=== PATIENT | male | born 1950 | race American Indian/Alaskan Native ===

== ENCOUNTER 2016-12-21 16:52 | Emergency (ER) | payer MEDICARE, MEDICAID ==
--- NOTE | 2016-12-21 16:59 | EDM.PDOC ---
ED HPI GENERAL MEDICAL PROBLEM - General Chief Complaint: Skin Complaint Stated Complaint: BIG TOE PUS, DIABETIC, [id number] Time Seen by Provider: 12/21/16 16:59 Source of Information: Reports: Patient, Old Records, RN, RN Notes Reviewed History Limitations: Reports: No Limitations - History of Present Illness INITIAL COMMENTS - FREE TEXT/NARRATIVE: Complaint of new "raw spot" on right foot. Patient is diabetic and has had skin ulcers that got infected in the past and doesn't want to take any chances. Reports new shoe rubbed at the medial right big toe joint and made a blister that popped during the night. Severity: Mild Improves with: Reports: None Worsens with: Reports: None Associated Symptoms: Reports: No Other Symptoms Right Feet Pain Score (Numeric/FACES): 0 - Related Data Allergies Allergy/AdvReac Type Severity Reaction Status Date / Time No Known Allergies Allergy Verified 12/21/16 16:59 Home Meds: Home Meds Acetaminophen [Pain Relief] 650 mg PO Q4HR PRN 01/12/15 [History] Gabapentin [Neurontin] 300 mg PO BID 01/12/15 [History] Aspirin [Halfprin] 81 mg PO DAILY 04/24/15 [History] Insulin Detemir [Levemir] 55 units INJECT BEDTIME 05/11/15 [History] sitaGLIPtin Phos/Metformin HCl [Janumet 50-1,000 MG] 1 tab PO BIDMEALS 10/28/16 [History] Past Medical History Other HEENT History: wear glasses Respiratory History: Reports: Pneumothorax, Other (See Below) Other Respiratory History: HX OF RIGHT PNEUMOTHORAX Gastrointestinal History: Reports: Helicobacter Pylori, Other (See Below) Other Gastrointestinal History: ventral hernia, colon cancer 2012; HYPYLORI POSITIVE Genitourinary History: Reports: None Musculoskeletal History: Reports: Fracture, Other (See Below) Other Musculoskeletal History: osteoarthritis in knees, neck fracture; HUMERAL DISTAL FRACTURE WITH INTRACATICULAR EXTENSION; CLOSED DISPLACED SUPRACONDYLAR FRACTURE WITH INTRACONDYLAR EXTENSION OF LOWER END OF LEFT FEMUR; SEPTIC ARTHRITIS OF KNEE Other Neuro History: broken neck plate placed with some numbness from neck toes Psychiatric History: Reports: None Endocrine/Metabolic History: Reports: Diabetes, Type II, Obesity/BMI 30+ Hematologic History: Reports: Anemia, Blood Transfusion(s) Other Hematologic History: NEUTROPENIA CHEMOTHERAPY INDUCED; ACUTE BLOOD LOSS FROM LONG BONE FRACTURE REQUIRING TRANSFUSION 2014 Immunologic History: Reports: None Oncologic (Cancer) History: Reports: Colon Dermatologic History: Reports: Other (See Below) - Infectious Disease History Infectious Disease History: Reports: Chicken Pox - Past Surgical History Musculoskeletal Surgical History: Reports: Other (See Below) Social & Family History - Family History Family Medical History: Noncontributory - Tobacco Use Smoking Status *Q: Former Smoker Years of Tobacco use: 40 Used Tobacco, but Quit: Yes Month Tobacco Last Used: 08/25/2000 Second Hand Smoke Exposure: No - Caffeine Use Caffeine Use: Reports: Coffee - Alcohol Use Days Per Week of Alcohol Use: 2 Number of Drinks Per Day: 12 Total Drinks Per Week: 24 - Recreational Drug Use Recreational Drug Use: No ED ROS GENERAL - Review of Systems Review Of Systems: ROS reveals no pertinent complaints other than HPI. ED EXAM, SKIN/RASH Exam: See Below Exam Limited By: No Limitations General Appearance: Obese Respiratory/Chest: No Respiratory Distress Extremities: Other (bunion at right 1st MTPJ.) Neurological: Alert, Oriented, CN II-XII Intact, Normal Cognition, Normal Gait, Normal Reflexes, No Motor/Sensory Deficits Psychiatric: Normal Affect, Normal Mood Location, Skin: Lower Extremity, Right (1.5cm superficial ulcer at right medial foot adjacent to 1st MTPJ.) Course - Vital Signs Last Recorded V/S: Last Vital Signs Temp 36.6 C 12/21/16 16:59 Pulse 72 12/21/16 16:59 Resp 20 12/21/16 16:59 BP 136/50 L 12/21/16 16:59 Pulse Ox 99 12/21/16 16:59 - Orders/Labs/Meds Orders: Active Orders 24 hr Category Date Time Status CULTURE WOUND [RM] Stat Lab 12/21/16 17:06 Received Meds: Medications Discontinued Medications Generic Name Dose Route Start Last Admin Trade Name Freq PRN Reason Stop Dose Admin Bacitracin 1 dose 12/21/16 17:07 12/21/16 17:14 Bacitracin Oint 1 Gm TOP 12/21/16 17:08 1 dose ONETIME ONE Administration Clindamycin HCl 300 mg 12/21/16 17:07 12/21/16 17:14 Cleocin PO 12/21/16 17:08 300 mg ONETIME ONE Administration Clindamycin HCl Confirm 12/21/16 17:25 12/21/16 17:32 Cleocin Administered 12/21/16 17:26 Not Given Dose 600 mg .ROUTE .STK-MED ONE Departure - Departure Time of Disposition: 17:11 Disposition: Home, Self-Care 01 Condition: good Clinical Impression: Diabetic foot ulcer Qualifiers: Diabetic foot ulcer location: unspecified part of foot Diabetes mellitus type: type 2 Laterality: right Non-pressure ulcer stage: limited to breakdown of skin Qualified Code(s): E11.621 - Type 2 diabetes mellitus with foot ulcer - Discharge Information Instructions: Diabetes and Foot Care Referrals: PCP,None [Primary Care Provider] - Forms: ED Department Discharge Additional Instructions: RX: Clindamycin 300mg. Bactroban ointment 2%. Wear the surgical shoe. Follow up at [facility] with industrial services worker Dr. Montiel. Call Friday for appointment. - My Orders Last 24 Hours: My Active Orders 12/21/16 17:06 CULTURE WOUND [RM] Stat - Assessment/Plan Last 24 Hours: My Active Orders 12/21/16 17:06 CULTURE WOUND [RM] Stat
[2016-12-21 17:00] VITALS: BP 136/50
[2016-12-21] MEDS ORDERED: Bacitracin Oint 1 GM U/D Packet TOP ONE (17:07)
[2016-12-21] MEDS ORDERED: Clindamycin HCl 150 MG Cap PO ONE ×2 (17:07→17:25)
[2016-12-21] MEDS ORDERED: Clindamycin HCl 150 MG Cap ONE (17:25)
== END 2016-12-21 17:32 | disposition home or self-care (01) ==
LOC: DL.ED 16:52
DX: E11.621 Type 2 diabetes mellitus with foot ulcer (principal); L97.411 Non-pressure chronic ulcer of right heel and midfoot limited to breakdown of skin; M19.90 Unspecified osteoarthritis, unspecified site; E66.9 Obesity, unspecified; Z68.37 Body mass index [BMI] 37.0-37.9, adult; Z85.038 Personal history of other malignant neoplasm of large intestine; Z79.82 Long term (current) use of aspirin; Z79.4 Long term (current) use of insulin; Z79.899 Other long term (current) drug therapy; Z87.891 Personal history of nicotine dependence; Z86.2 Personal history of diseases of the blood and blood-forming organs and certain disorders involving the immune mechanism
CPT/HCPCS: 87070; 87077; 87186; 99284; A9270; 99283

== ENCOUNTER 2017-02-07 06:55 | Day surgery (SDC) | payer MEDICARE, OTHER ==
[~2017-02-07 06:55] MED LIST: Dextrose 5%-0.45% NaCl 1,000 ML IV SCH; Midazolam 1 MG/ML 2 ML SDV ONE; Sodium Chloride 0.9% 10 ML Syringe FLUSH PRN; fentaNYL 100 MCG/2 ML SDV ONE
[2017-02-07] MEDS ORDERED: fentaNYL 100 MCG/2 ML SDV IV ONE ×3 (08:28→12:09)
[2017-02-07] MEDS ORDERED: Midazolam 1 MG/ML 2 ML SDV IV ONE ×4 (08:29→12:09)
--- NOTE | 2017-02-07 10:03 | OR ---
DATE: 02/07/2017 PROCEDURE: Total colonoscopy. INSTRUMENT USED: PCF-H180AL Olympus video colonoscope. PREMEDICATIONS: Fentanyl 100 mcg intravenous, Versed 2.5 mg intravenous. Nasal O2 cannula. The procedure was done under pulse oximetry, BP recording, and court monitor. INDICATION: The patient with previous right hemicolectomy for cancer. Surveillance colonoscopic examination is done for detection of any polypoid lesions and removal, endoscopic hemostasis therapy if needed. DESCRIPTION OF PROCEDURE: Initial rectal exam showed some flaps in mucosa as well as internal hemorrhoids without bleeding from them. The colonoscope was passed with ease. After the area of surgical anastomosis, photographs were taken of the area. No bleeding was noted from any of the visualized areas at the commencement of the examination. There was large amount of fecal material, both solid and liquid, limiting the examination significantly. No stricture. No vascular ectasia. No large isolated ulcerations seen. No evidence of diffuse inflammatory bowel disease in the form of friability, contact bleeding, or ulcerations. No polyp or tumor mass identified. Probing the proximal sides of folds and flexures, using adequate distention and clearing up the stool material, withdrawal of the scope was made, more than 6 minutes taken. No bleeding was noted from any of the visualized areas at the completion of examination. IMPRESSION: status post right hemicolectomy. The patient tolerated the procedure well. [facility] /[id number]
[2017-02-07 10:33] VITALS: BP 116/48
--- NOTE | 2017-02-07 11:09 | LETTER ---
02/07/2017 Tyrese Simpson MD [facility] [address] [place] [address] RE: BRYAN HUGHES : [address] Simpson: Mr. Bryan Hughes had colonoscopic examination done this morning and he tolerated the procedure well. I herewith send a copy of the endoscopy note and photographs for your review. Thank you. Sincerely, [facility] /[id number]
== END 2017-02-07 11:00 | disposition home or self-care (01) ==
LOC: DL.ENDO 06:55
PROVIDERS: ATTEND Internal Medicine Gastroenterology
DX: Z12.11 Encounter for screening for malignant neoplasm of colon (principal); Z85.038 Personal history of other malignant neoplasm of large intestine; K64.8 Other hemorrhoids; E11.9 Type 2 diabetes mellitus without complications; E66.9 Obesity, unspecified; Z68.30 Body mass index [BMI] 30.0-30.9, adult; Z90.49 Acquired absence of other specified parts of digestive tract; Z98.890 Other specified postprocedural states; Z87.891 Personal history of nicotine dependence
CPT/HCPCS: G0105; J2250; J3010; J7042

== ENCOUNTER 2017-12-26 15:57 | Emergency (ER) | payer MEDICARE, OTHER ==
--- NOTE | 2017-12-26 17:06 | CR ---
Clinical history: 67 diabetic male with history of old trauma, open orthopedic fixation, and infectio n left knee. Interpretation: Abnormal. *Intramedullary sima appears to have broken along the fracture line distal diaphysis of the left femur in the interval since 30 December 2014 exam. (All of the horizontally placed screws in 30 December exam have been removed in interval. Abnormal diastases and new near 90 degree angulation deformity on lateral view at the fracture site, since previous exam. Chronic severe degenerative destructive changes left knee joint and hypertrophic arthritic changes of the patella. Joint effusion but no new fracture and no dislocation of the knee joint.
[2017-12-26 17:43] VITALS: BP 108/51
--- NOTE | 2017-12-26 18:52 | EDM.PDOC ---
ED HPI GENERAL MEDICAL PROBLEM - General Chief Complaint: Lower Extremity Injury/Pain Stated Complaint: LT KNEE PAIN [id number] Time Seen by Provider: 12/26/17 18:49 Source of Information: Reports: Patient History Limitations: Reports: No Limitations - History of Present Illness INITIAL COMMENTS - FREE TEXT/NARRATIVE: onset pain yesterday without trauma. had ORIF in 2013 @ [facility]. took 4x aleve and feeling better. Left Knee Pain Score (Numeric/FACES): 4 - Related Data Allergies Allergy/AdvReac Type Severity Reaction Status Date / Time No Known Allergies Allergy Verified 12/26/17 17:43 Home Meds: Home Meds Acetaminophen [Pain Relief] 650 mg PO Q4HR PRN 01/12/15 [History] Gabapentin [Neurontin] 600 mg PO DAILY 01/12/15 [History] Aspirin [Halfprin] 81 mg PO DAILY 04/24/15 [History] Insulin Detemir [Levemir] 55 units INJECT BEDTIME 05/11/15 [History] sitaGLIPtin Phos/Metformin HCl [Janumet 50-1,000 MG] 1 tab PO BIDMEALS 10/28/16 [History] Lisinopril 1 tab PO DAILY 11/14/17 [History] Past Medical History Other HEENT History: wear glasses Cardiovascular History: Reports: None Respiratory History: Reports: Pneumothorax, Other (See Below) Other Respiratory History: HX OF RIGHT PNEUMOTHORAX Gastrointestinal History: Reports: Helicobacter Pylori, Other (See Below) Other Gastrointestinal History: ventral hernia, colon cancer 2012; HYPYLORI POSITIVE Genitourinary History: Reports: None Musculoskeletal History: Reports: Arthritis, Fracture, Other (See Below) Other Musculoskeletal History: osteoarthritis in knees, neck fracture; HUMERAL DISTAL FRACTURE WITH INTRACATICULAR EXTENSION; CLOSED DISPLACED SUPRACONDYLAR FRACTURE WITH INTRACONDYLAR EXTENSION OF LOWER END OF LEFT FEMUR; SEPTIC ARTHRITIS OF KNEE Other Neuro History: broken neck plate placed with some numbness from neck toes Psychiatric History: Reports: None Endocrine/Metabolic History: Reports: Diabetes, Type II, Obesity/BMI 30+ Hematologic History: Reports: Anemia, Blood Transfusion(s) Other Hematologic History: NEUTROPENIA CHEMOTHERAPY INDUCED; ACUTE BLOOD LOSS FROM LONG BONE FRACTURE REQUIRING TRANSFUSION 2014 Immunologic History: Reports: None Oncologic (Cancer) History: Reports: Colon Dermatologic History: Reports: Other (See Below) - Infectious Disease History Infectious Disease History: Reports: Chicken Pox - Past Surgical History GI Surgical History: Reports: Colon, Colonoscopy, Polypectomy Other GI Surgeries/Procedures: BOWEL RESECTION Other Neurological Surgeries/Procedures: plate placed Musculoskeletal Surgical History: Reports: ORIF, Other (See Below) Other Musculoskeletal Surgeries/Procedures:: marissa and pins placed in left knee December 2013, neck surgery-plate placed in early ; I & D OF LEFT KNEE, HARDWARE REMOVAL, INSERTION OF AB CEMENT (IM MARISSA) FOR STREP PYOGENES; CERVICAL INFUSION Other Oncologic Surgeries/Procedures: colon resection Social & Family History - Family History Family Medical History: Noncontributory - Tobacco Use Smoking Status *Q: Current Some Day Smoker Years of Tobacco use: 17 Packs/Tins Daily: 1 - Caffeine Use Caffeine Use: Reports: Coffee - Recreational Drug Use Recreational Drug Use: No Review of Systems - Review of Systems Review Of Systems: ROS reveals no pertinent complaints other than HPI. ED EXAM, GENERAL - Physical Exam Exam: See Below Exam Limited By: No Limitations General Appearance: Alert, WD/WN, Mild Distress, Other (discomfort) Ears: Hearing Grossly Normal Throat/Mouth: Normal Voice, No Airway Compromise Head: Atraumatic Neck: Non-Tender, Full Range of Motion Respiratory/Chest: No Respiratory Distress Cardiovascular: Regular Rate, Rhythm GI/Abdominal: Soft, Non-Tender Extremities: Other (left knee swollen no discolouration tneder R/P, [place] wnl. gait unable bear weight.) Neurological: Alert, Oriented, Normal Cognition, No Motor/Sensory Deficits Psychiatric: Normal Affect, Normal Mood Skin Exam: Warm, Dry, Normal Color Lymphatic: No Adenopathy Course - Vital Signs Last Recorded V/S: Last Vital Signs Temp 37.3 C 12/26/17 17:40 Pulse 89 12/26/17 17:40 Resp 14 12/26/17 17:40 BP 108/51 L 12/26/17 17:40 Pulse Ox 99 12/26/17 17:40 - Orders/Labs/Meds Meds: Medications Discontinued Medications Generic Name Dose Route Start Last Admin Trade Name Freq PRN Reason Stop Dose Admin Hydrocodone Bitart/Acetaminophen 1 tab 12/26/17 19:18 [place] 325-10 Mg PO 12/26/17 19:19 ONETIME ONE - Re-Assessments/Exams Free Text/Narrative Re-Assessment/Exam: 12/26/17 19:[address] Yaneli ruffin @ who reviewed pt's records that state pt had turned down suggestions discussed in several prior visits. pt concurred. Departure - Departure Time of Disposition: 19:31 Disposition: Home, Self-Care 01 Condition: Fair Clinical Impression: Postoperative pain of right knee - Discharge Information Referrals: Wilson Torres [Primary Care Provider] - Forms: ED Department Discharge Additional Instructions: 1) continue present meds 2) see [facility] Friday 3) or can call ORTHO [facility] in [place] Friday [phone] for appointment.
[2017-12-26] MEDS ORDERED: Acetaminophen/HYDROcodone 325-10 MG Tab PO ONE (19:18)
== END 2017-12-26 19:35 | disposition home or self-care (01) ==
LOC: DL.ED 15:57
DX: G89.18 Other acute postprocedural pain (principal); M25.562 Pain in left knee; F17.210 Nicotine dependence, cigarettes, uncomplicated; E11.9 Type 2 diabetes mellitus without complications; Z79.4 Long term (current) use of insulin; Z79.82 Long term (current) use of aspirin; Z79.899 Other long term (current) drug therapy; Z96.651 Presence of right artificial knee joint
CPT/HCPCS: 73560; 99283; A9270

== ENCOUNTER 2017-12-28 22:32 | Emergency (ER) | payer MEDICARE, OTHER ==
--- NOTE | 2017-12-28 22:38 | EDM.PDOC ---
ED HPI GENERAL MEDICAL PROBLEM - General Chief Complaint: Lower Extremity Injury/Pain Stated Complaint: IN BY AMBULANCE Time Seen by Provider: 12/28/17 22:34 Source of Information: Reports: Patient History Limitations: Reports: No Limitations - History of Present Illness INITIAL COMMENTS - FREE TEXT/NARRATIVE: was 2 day ago for knee pain today worse with swelling and pain. pt been to ortho @ [facility] where the rec' is amputation due to chronic infections and DM but pt declined. Left Knee Pain Score (Numeric/FACES): 5 - Related Data Allergies Allergy/AdvReac Type Severity Reaction Status Date / Time No Known Allergies Allergy Verified 12/28/17 22:47 Home Meds: Home Meds Acetaminophen [Pain Relief] 650 mg PO Q4HR PRN 01/12/15 [History] Gabapentin [Neurontin] 600 mg PO DAILY 01/12/15 [History] Aspirin [Halfprin] 81 mg PO DAILY 04/24/15 [History] Insulin Detemir [Levemir] 55 units INJECT BEDTIME 05/11/15 [History] sitaGLIPtin Phos/Metformin HCl [Janumet 50-1,000 MG] 1 tab PO BIDMEALS 10/28/16 [History] Lisinopril 1 tab PO DAILY 11/14/17 [History] Past Medical History Other HEENT History: wear glasses Cardiovascular History: Reports: None Respiratory History: Reports: Pneumothorax, Other (See Below) Other Respiratory History: HX OF RIGHT PNEUMOTHORAX Gastrointestinal History: Reports: Helicobacter Pylori, Other (See Below) Other Gastrointestinal History: ventral hernia, colon cancer 2012; HYPYLORI POSITIVE Genitourinary History: Reports: None Musculoskeletal History: Reports: Arthritis, Fracture, Other (See Below) Other Musculoskeletal History: osteoarthritis in knees, neck fracture; HUMERAL DISTAL FRACTURE WITH INTRACATICULAR EXTENSION; CLOSED DISPLACED SUPRACONDYLAR FRACTURE WITH INTRACONDYLAR EXTENSION OF LOWER END OF LEFT FEMUR; SEPTIC ARTHRITIS OF KNEE Other Neuro History: broken neck plate placed with some numbness from neck toes Psychiatric History: Reports: None Endocrine/Metabolic History: Reports: Diabetes, Type II, Obesity/BMI 30+ Hematologic History: Reports: Anemia, Blood Transfusion(s) Other Hematologic History: NEUTROPENIA CHEMOTHERAPY INDUCED; ACUTE BLOOD LOSS FROM LONG BONE FRACTURE REQUIRING TRANSFUSION 2014 Immunologic History: Reports: None Oncologic (Cancer) History: Reports: Colon Dermatologic History: Reports: Other (See Below) - Infectious Disease History Infectious Disease History: Reports: Chicken Pox - Past Surgical History GI Surgical History: Reports: Colon, Colonoscopy, Polypectomy Other GI Surgeries/Procedures: BOWEL RESECTION Other Neurological Surgeries/Procedures: plate placed Musculoskeletal Surgical History: Reports: ORIF, Other (See Below) Other Musculoskeletal Surgeries/Procedures:: marissa and pins placed in left knee December 2013, neck surgery-plate placed in early ; I & D OF LEFT KNEE, HARDWARE REMOVAL, INSERTION OF AB CEMENT (IM MARISSA) FOR STREP PYOGENES; CERVICAL INFUSION Other Oncologic Surgeries/Procedures: colon resection Social & Family History - Family History Family Medical History: Noncontributory - Caffeine Use Caffeine Use: Reports: Coffee Review of Systems - Review of Systems Review Of Systems: ROS reveals no pertinent complaints other than HPI. ED EXAM, GENERAL - Physical Exam Exam: See Below Exam Limited By: No Limitations General Appearance: Alert, WD/WN, Mild Distress, Other (pain) Ears: Hearing Grossly Normal Throat/Mouth: Normal Voice, No Airway Compromise Head: Atraumatic Neck: Non-Tender, Full Range of Motion Respiratory/Chest: No Respiratory Distress Cardiovascular: Regular Rate, Rhythm GI/Abdominal: Soft, Non-Tender Extremities: Other (left knee swollen hot mildly erythematous) Neurological: Alert, Oriented, Normal Cognition, No Motor/Sensory Deficits Psychiatric: Tearful Skin Exam: Warm, Dry, Normal Color Lymphatic: No Adenopathy Course - Vital Signs Last Recorded V/S: Last Vital Signs Temp 37.9 C 12/28/17 23:46 Pulse 86 12/28/17 23:46 Resp 18 12/28/17 23:46 BP 97/48 L 12/28/17 23:46 Pulse Ox 98 12/28/17 23:46 - Orders/Labs/Meds Orders: Active Orders 24 hr Category Date Time Status CULTURE BLOOD [BC] Stat Lab 12/28/17 22:45 Received Sodium Chloride 0.9% [Normal Saline] 1,000 ml Med 12/29/17 00:00 Active IV ASDIRECTED Medication Orders Sodium Chloride (Normal Saline) 1,000 mls @ 200 mls/hr IV ASDIRECTED CARLIE Last Admin: 12/29/17 00:13 Dose: 200 mls/hr Labs: Laboratory Tests 12/28/17 12/28/17 12/28/17 Range/Units 22:45 22:45 22:45 WBC 6.5 (5.0-10.0) 10^3/uL RBC 4.26 L (4.6-6.2) 10^6/uL Hgb 13.2 L (14.0-18.0) g/dL Hct 38.9 L (40.0-54.0) % MCV 91.3 D (80-100) fL MCH 31.0 (27.0-34.0) pg MCHC 33.9 (33.0-35.0) g/dL Plt Count 124 L (150-450) 10^3/uL Neut % (Auto) 85.7 H (42.2-75.2) % Lymph % (Auto) 5.8 L (20.5-50.1) % [place] % (Auto) 8.3 H (2-8) % Eos % (Auto) 0.2 L (1.0-3.0) % Baso % (Auto) 0.0 (0.0-1.0) % Sodium 128 L (135-145) mmol/L Potassium 4.2 (3.6-5.0) mmol/L Chloride 96 L (101-111) mmol/L Carbon Dioxide 23.0 (21.0-31.0) mmol/L Anion Gap 13.2 BUN 29 H (7-18) mg/dL Creatinine 1.0 (0.6-1.3) mg/dL Est Cr Clr Drug Dosing 79.76 mL/min Estimated GFR (MDRD) > 60 BUN/Creatinine Ratio 29.00 Glucose 323 H (74-105) mg/dL Lactic Acid 2.7 H (0.5-2.2) mmol/L Calcium 8.6 (8.4-10.2) mg/dl Total Bilirubin 2.0 H (0.2-1.0) mg/dL AST 38 (10-42) IU/L ALT 17 (10-60) IU/L Alkaline Phosphatase 59 (42-121) IU/L Total Protein 6.8 (6.7-8.2) g/dl Albumin 3.0 L (3.2-5.5) g/dl Globulin 3.8 Albumin/Globulin Ratio 0.79 Meds: Medications Generic Name Dose Route Start Last Admin Trade Name Freq PRN Reason Stop Dose Admin Sodium Chloride 1,000 mls @ 200 mls/hr 12/29/17 00:00 12/29/17 00:13 Normal Saline IV 200 mls/hr ASDIRECTED CARLIE Administration Discontinued Medications Generic Name Dose Route Start Last Admin Trade Name Ragini PRN Reason Stop Dose Admin Clindamycin Phosphate 900 mg/ 106 mls @ 200 mls/hr 12/29/17 00:00 12/29/17 00 :13 Sodium Chloride IV 12/29/17 00:31 200 mls/hr ONETIME ONE Administration - Re-Assessments/Exams Free Text/Narrative Re-Assessment/Exam: 12/29/17 00:[address] Diggs @ who kindly accepted pt. Departure - Departure Time of Disposition: 00:51 Disposition: DC/Tfer to Acute Hospital 02 Condition: Fair Clinical Impression: Cellulitis of knee, left - Discharge Information Forms: Interfacility Transfer EMTALA - My Orders Last 24 Hours: My Active Orders 12/28/17 22:45 CULTURE BLOOD [BC] Stat 12/29/17 00:00 Sodium Chloride 0.9% [Normal Saline] 1,000 ml IV ASDIRECTED - Assessment/Plan Last 24 Hours: My Active Orders 12/28/17 22:45 CULTURE BLOOD [BC] Stat 12/29/17 00:00 Sodium Chloride 0.9% [Normal Saline] 1,000 ml IV ASDIRECTED
[2017-12-29] MEDS ORDERED: Clindamycin Phosphate 900 MG in Sodium Chloride 0.9% 100 ML IV ONE ×2
[2017-12-29] MEDS ORDERED: Sodium Chloride 0.9% 1,000 ML IV SCH
[2017-12-29 00:01] LABS: CHLORIDE,CL 96 mmol/L (101-111); SODIUM,NA 128 mmol/L (135-145)
[2017-12-29 00:58] VITALS: BP 112/54
== END 2017-12-29 01:26 ==
LOC: DL.ED 22:32
DX: L03.116 Cellulitis of left lower limb (principal); E11.9 Type 2 diabetes mellitus without complications; Z79.82 Long term (current) use of aspirin; Z79.4 Long term (current) use of insulin; Z79.899 Other long term (current) drug therapy
CPT/HCPCS: 36415; 80053; 83605; 85025; 87040; 87077; 87186; 96361; 96365; 99283; 99285; J7030; J7050; S0077

== ENCOUNTER 2019-09-25 15:43 | Emergency (ER) | payer MEDICARE, MEDICAID ==
[2019-09-25 15:44] VITALS: BP 111/54; PULSE 140
--- NOTE | 2019-09-25 15:45 | EDM.PDOC ---
<Carlos Manuel Huerta - Last Filed: 09/25/19 18:45> ED HPI GENERAL MEDICAL PROBLEM - General Stated Complaint: AMBULANCE Time Seen by Provider: 09/25/19 15:35 Source of Information: Reports: Patient, EMS History Limitations: Reports: No Limitations - History of Present Illness INITIAL COMMENTS - FREE TEXT/NARRATIVE: This 69 yo male patient was brought to the emergency department by [facility] due to feeling lightheaded and dizzy when he stands up. The patient reports his symptoms started 4-5 days ago. The patient reports he has not been eating regularly, but has been drinking a lot of water. The patient reports he has noticed increased pain to his left lateral ankle due to an open wound on that area. EMS had given the patient a small amount of IV fluids while enroute which resulted in a small increase in his blood pressure. Onset Date: 09/21/19 Duration: Constant Location: Reports: Generalized Quality: Reports: Other Severity: Moderate Improves with: Reports: Rest Worsens with: Reports: Movement Context: Reports: Other Associated Symptoms: Reports: No Other Symptoms Left Leg Pain Score (Numeric/FACES): 8 - Related Data Allergies Allergy/AdvReac Type Severity Reaction Status Date / Time No Known Allergies Allergy Verified 09/25/19 16:35 Home Meds: Home Meds Acetaminophen [Pain Relief] 650 mg PO Q4HR PRN 01/12/15 [History] Aspirin [Halfprin] 81 mg PO DAILY 04/24/15 [History] Insulin Detemir [Levemir] 40 units INJECT BID 05/11/15 [History] Cefadroxil [Duricef] 500 mg PO BID 09/25/19 [History] Rifampin [Rifadin] 300 mg PO BID 09/25/19 [History] metFORMIN HCl [Metformin HCl] 1,000 mg PO BID 09/25/19 [History] Past Medical History Other HEENT History: wear glasses Cardiovascular History: Reports: None Respiratory History: Reports: Pneumothorax, Other (See Below) Other Respiratory History: HX OF RIGHT PNEUMOTHORAX Gastrointestinal History: Reports: Helicobacter Pylori, Other (See Below) Other Gastrointestinal History: ventral hernia, colon cancer 2012; HYPYLORI POSITIVE Genitourinary History: Reports: None Musculoskeletal History: Reports: Arthritis, Fracture, Other (See Below) Other Musculoskeletal History: osteoarthritis in knees, neck fracture; HUMERAL DISTAL FRACTURE WITH INTRACATICULAR EXTENSION; CLOSED DISPLACED SUPRACONDYLAR FRACTURE WITH INTRACONDYLAR EXTENSION OF LOWER END OF LEFT FEMUR; SEPTIC ARTHRITIS OF KNEE Other Neuro History: broken neck plate placed with some numbness from neck toes Psychiatric History: Reports: None Endocrine/Metabolic History: Reports: Diabetes, Type II, Obesity/BMI 30+ Hematologic History: Reports: Anemia, Blood Transfusion(s) Other Hematologic History: NEUTROPENIA CHEMOTHERAPY INDUCED; ACUTE BLOOD LOSS FROM LONG BONE FRACTURE REQUIRING TRANSFUSION 2014 Immunologic History: Reports: None Oncologic (Cancer) History: Reports: Colon Dermatologic History: Reports: Other (See Below) - Infectious Disease History Infectious Disease History: Reports: Chicken Pox - Past Surgical History GI Surgical History: Reports: Colon, Colonoscopy, Polypectomy Other GI Surgeries/Procedures: BOWEL RESECTION Other Neurological Surgeries/Procedures: plate placed Musculoskeletal Surgical History: Reports: ORIF, Other (See Below) Other Musculoskeletal Surgeries/Procedures:: marissa and pins placed in left knee December 2013, neck surgery-plate placed in early ; I & D OF LEFT KNEE, HARDWARE REMOVAL, INSERTION OF AB CEMENT (IM MARISSA) FOR STREP PYOGENES; CERVICAL INFUSION Other Oncologic Surgeries/Procedures: colon resection Social & Family History - Family History Family Medical History: Noncontributory - Caffeine Use Caffeine Use: Reports: Coffee ED ROS GENERAL - Review of Systems Review Of Systems: Comprehensive ROS is negative, except as noted in HPI. ED EXAM, GENERAL - Physical Exam Exam: See Below General Appearance: Alert, WD/WN, Moderate Distress Eye Exam: Bilateral Eye: EOMI, Normal Inspection, PERRL Ears: Normal External Exam, Normal Canal, Hearing Grossly Normal, Normal TMs Nose: Normal Inspection, Normal Mucosa, No Blood Throat/Mouth: Normal Inspection, Normal Lips, Normal Teeth, Normal Gums, Normal Oropharynx, Normal Voice, No Airway Compromise Head: Atraumatic, Normocephalic Neck: Normal Inspection, Supple, Non-Tender, Full Range of Motion Respiratory/Chest: No Respiratory Distress, Lungs Clear, Normal Breath Sounds, No Accessory Muscle Use, Chest Non-Tender Cardiovascular: Tachycardia GI/Abdominal: Normal Bowel Sounds, Soft, Non-Tender, No Organomegaly, No Distention, No Abnormal Bruit, No Mass (Male) Exam: Deferred Rectal (Males) Exam: Deferred Back Exam: Normal Inspection, Full Range of Motion, NT Extremities: Leg Pain (left lateral ankle erythema with tenderness) Neurological: Alert, Oriented, Normal Cognition Psychiatric: Normal Affect, Normal Mood Skin Exam: Warm, Dry, Intact, Normal Color, No Rash Lymphatic: No Adenopathy Course - Vital Signs Last Recorded V/S: Last Vital Signs Temp 98.8 F 09/25/19 15:42 Pulse 140 H 09/25/19 15:42 Resp 16 09/25/19 15:42 BP 111/54 L 09/25/19 15:42 Pulse Ox 97 09/25/19 15:42 - Orders/Labs/Meds Orders: Active Orders 24 hr Category Date Time Status EKG Documentation Completion [RC] URGENT Care 09/25/19 15:28 Active CULTURE BLOOD [BC] Stat Lab 09/25/19 15:47 Received Labs: Laboratory Tests 09/25/19 09/25/19 09/25/19 Range/Units 15:47 15:47 15:47 WBC 4.9 L (5.0-10.0) 10^3/uL RBC 4.47 L (4.6-6.2) 10^6/uL Hgb 13.8 L (14.0-18.0) g/dL Hct 40.7 (40.0-54.0) % MCV 91.1 (80-100) fL MCH 30.9 (27.0-34.0) pg MCHC 33.9 (33.0-35.0) g/dL Plt Count 121 L (150-450) 10^3/uL Neut % (Auto) 88.1 H (42.2-75.2) % Lymph % (Auto) 4.3 L (20.5-50.1) % Ada % (Auto) 7.4 (2-8) % Eos % (Auto) 0.2 L (1.0-3.0) % Baso % (Auto) 0.0 (0.0-1.0) % Sodium 131 L (136-145) mmol/L Potassium 3.3 L (3.5-5.1) mmol/L Chloride 98 (98-107) mmol/L Carbon Dioxide 20 L (21-32) mmol/L Anion Gap 16.3 H (7-13) mEq/L BUN 20 H (7-18) mg/dL Creatinine 1.06 (0.70-1.30) mg/dL Est Cr Clr Drug Dosing 73.21 mL/min Estimated GFR (MDRD) > 60 BUN/Creatinine Ratio 18.9 (No establ ref range) Glucose 186 H (74-99) mg/dL Lactic Acid (0.4-2.0) mmol/L Calcium 7.4 L (8.5-10.1) mg/dL Magnesium 1.8 (1.8-2.4) mg/dL Total Bilirubin 0.7 (0.2-1.0) mg/dL AST 19 (15-37) U/L ALT 15 L (16-63) U/L Alkaline Phosphatase 59 (46-116) U/L Troponin I 0.022 (0.000-0.056) ng/mL B-Natriuretic Peptide (0-100) pg/ml Total Protein 6.3 L (6.4-8.2) g/dL Albumin 2.4 L (3.4-5.0) g/dL Globulin 3.9 Albumin/Globulin Ratio 0.62 /09/25/19 Range/Units 15:47 15:47 WBC (5.0-10.0) 10^3/uL RBC (4.6-6.2) 10^6/uL Hgb (14.0-18.0) g/dL Hct (40.0-54.0) % MCV (80-100) fL MCH (27.0-34.0) pg MCHC (33.0-35.0) g/dL Plt Count (150-450) 10^3/uL Neut % (Auto) (42.2-75.2) % Lymph % (Auto) (20.5-50.1) % Ada % (Auto) (2-8) % Eos % (Auto) (1.0-3.0) % Baso % (Auto) (0.0-1.0) % Sodium (136-145) mmol/L Potassium (3.5-5.1) mmol/L Chloride (98-107) mmol/L Carbon Dioxide (21-32) mmol/L Anion Gap (7-13) mEq/L BUN (7-18) mg/dL Creatinine (0.70-1.30) mg/dL Est Cr Clr Drug Dosing mL/min Estimated GFR (MDRD) BUN/Creatinine Ratio (No establ ref range) Glucose (74-99) mg/dL Lactic Acid 1.7 (0.4-2.0) mmol/L Calcium (8.5-10.1) mg/dL Magnesium (1.8-2.4) mg/dL Total Bilirubin (0.2-1.0) mg/dL AST (15-37) U/L ALT (16-63) U/L Alkaline Phosphatase (46-116) U/L Troponin I (0.000-0.056) ng/mL B-Natriuretic Peptide 338 H (0-100) pg/ml Total Protein (6.4-8.2) g/dL Albumin (3.4-5.0) g/dL Globulin Albumin/Globulin Ratio Meds: Medications Discontinued Medications Generic Name Dose Route Start Last Admin Trade Name Freq PRN Reason Stop Dose Admin Iopamidol 100 ml 09/25/19 17:00 09/25/19 17:15 Isovue-300 (61%) IVPUSH 09/25/19 17:01 100 ml ONETIME ONE Administration Departure - Departure Disposition: DC/Tfer to Acute Hospital 02 Condition: Poor Clinical Impression: Incarcerated hernia of abdominal cavity, Tachycardia Septic arthritis of knee, left Qualifiers: Septic arthritis organism: due to unspecified organism Qualified Code(s): M00.9 - Pyogenic arthritis, unspecified Referrals: PCP,Unobtain [Primary Care Provider] - Forms: Interfacility Transfer [facility] Care Plan Goals: Discussed the patient's history, examination, lab and CT results with Dr. Lerma. Dr. Lerma accepted the patient for continued evaluation and management as an inpatient at [facility] in [place]. The patient will be transported by [facility] ambulance service due to no [facility] ambulance personnel available in [place]. Sepsis Event Note - Focused Exam Date Exam was Performed: 09/25/19 Time Exam was Performed: 18:45 <Ruthann Heath - Last Filed: 09/26/19 05:18> Departure - Departure Time of Disposition: 20:05 Reason for Transfer *Q: Other Sepsis Event Note - Focused Exam Date Exam was Performed: 09/26/19 Time Exam was Performed: 05:17
[2019-09-25 16:28] LABS: ANION GAP 16.3 mEq/L (7-13); CHLORIDE,CL 98 mmol/L (98-107); SODIUM,NA 131 mmol/L (136-145)
[2019-09-25] MEDS: Iopamidol 612 MG/ML 100 ML Bottle IVPUSH ONE (17:15)
== END 2019-09-25 20:04 ==
LOC: DL.ED 15:43
DX: K45.0 Other specified abdominal hernia with obstruction, without gangrene (principal); M00.9 Pyogenic arthritis, unspecified; R00.0 Tachycardia, unspecified; E11.9 Type 2 diabetes mellitus without complications; E66.9 Obesity, unspecified; Z79.82 Long term (current) use of aspirin; Z79.4 Long term (current) use of insulin; Z79.899 Other long term (current) drug therapy; Z85.038 Personal history of other malignant neoplasm of large intestine; Z68.37 Body mass index [BMI] 37.0-37.9, adult
CPT/HCPCS: 36415; 74177; 80053; 83605; 83735; 83880; 84484; 85025; 87040; 87077; 93005; 99285; Q9967; 99284

== ENCOUNTER 2019-12-04 12:19 | Emergency (ER) | payer MEDICARE, MEDICAID, OTHER ==
[2019-12-04 12:27] VITALS: BP 143/57; PULSE 84
[2019-12-04 13:05] LABS: ANION GAP 15.7 mEq/L (7-13); CHLORIDE,CL 102 mmol/L (98-107); SODIUM,NA 135 mmol/L (136-145)
[2019-12-04] MEDS ORDERED: Silver Sulfadiazine 1% Crm 50 GM Tube TOP ONE (13:20)
--- NOTE | 2019-12-04 14:20 | EDM.PDOC ---
Scribed by Shyla Ramesh 12/04/19 [id number] for Estella Yates NP ED HPI GENERAL MEDICAL PROBLEM - General Chief Complaint: Skin Complaint Stated Complaint: INCISION OPENED UP ON AMPUTATED LEG Time Seen by Provider: 12/04/19 12:26 Source of Information: Reports: Patient, RN, RN Notes Reviewed History Limitations: Reports: No Limitations - History of Present Illness INITIAL COMMENTS - FREE TEXT/NARRATIVE: Patient presents to ER with complaint of post amputation wound that opened up last night. States he has been taking care of the smaller area. Today large area just opened today. 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 No travel or exposure. He denies pain. He has had no fever, chills, cough, sore throat, chest pain or shortness of breath. He states serous bloody drainage with no odor or green. Onset Date: 12/03/19 Location: Reports: Lower Extremity, Left Severity: Moderate Improves with: Reports: None Worsens with: Reports: None Associated Symptoms: Reports: No Other Symptoms - Related Data Allergies Allergy/AdvReac Type Severity Reaction Status Date / Time No Known Allergies Allergy Verified 12/04/19 12:27 Home Meds: Home Meds Acetaminophen [Pain Relief] 650 mg PO Q4HR PRN 01/12/15 [History] Aspirin [Halfprin] 81 mg PO DAILY 04/24/15 [History] Insulin Detemir [Levemir] 40 units INJECT BID 05/11/15 [History] Cefadroxil [Duricef] 500 mg PO BID 09/25/19 [History] metFORMIN HCl [Metformin HCl] 1,000 mg PO BID 09/25/19 [History] rifAMPin [Rifadin] 300 mg PO BID 09/25/19 [History] atorvaSTATin [Lipitor] 10 mg PO DAILY 12/04/19 [History] Past Medical History Other HEENT History: wear glasses Cardiovascular History: Reports: None Respiratory History: Reports: Pneumothorax, Other (See Below) Other Respiratory History: HX OF RIGHT PNEUMOTHORAX Gastrointestinal History: Reports: Helicobacter Pylori, Other (See Below) Other Gastrointestinal History: ventral hernia, colon cancer 2012; HYPYLORI POSITIVE Genitourinary History: Reports: None Musculoskeletal History: Reports: Arthritis, Fracture, Other (See Below) Other Musculoskeletal History: osteoarthritis in knees, neck fracture; HUMERAL DISTAL FRACTURE WITH INTRACATICULAR EXTENSION; CLOSED DISPLACED SUPRACONDYLAR FRACTURE WITH INTRACONDYLAR EXTENSION OF LOWER END OF LEFT FEMUR; SEPTIC ARTHRITIS OF KNEE Other Neuro History: broken neck plate placed with some numbness from neck toes Psychiatric History: Reports: None Endocrine/Metabolic History: Reports: Diabetes, Type II, Obesity/BMI 30+ Hematologic History: Reports: Anemia, Blood Transfusion(s) Other Hematologic History: NEUTROPENIA CHEMOTHERAPY INDUCED; ACUTE BLOOD LOSS FROM LONG BONE FRACTURE REQUIRING TRANSFUSION 2014 Immunologic History: Reports: None Oncologic (Cancer) History: Reports: Colon Dermatologic History: Reports: Other (See Below) - Infectious Disease History Infectious Disease History: Reports: Chicken Pox - Past Surgical History GI Surgical History: Reports: Colon, Colonoscopy, Polypectomy Other GI Surgeries/Procedures: BOWEL RESECTION Other Neurological Surgeries/Procedures: plate placed Musculoskeletal Surgical History: Reports: ORIF, Other (See Below) Other Musculoskeletal Surgeries/Procedures:: marissa and pins placed in left knee December 2013, neck surgery-plate placed in early ; I & D OF LEFT KNEE, HARDWARE REMOVAL, INSERTION OF AB CEMENT (IM MARISSA) FOR STREP PYOGENES; CERVICAL INFUSION Other Oncologic Surgeries/Procedures: colon resection Social & Family History - Family History Family Medical History: Noncontributory - Caffeine Use Caffeine Use: Reports: Coffee ED ROS GENERAL - Review of Systems Review Of Systems: Comprehensive ROS is negative, except as noted in HPI. ED EXAM, SKIN/RASH Exam: See Below Exam Limited By: No Limitations General Appearance: Alert Eye Exam: Bilateral Eye: EOMI, Normal Inspection, PERRL Ears: Normal External Exam, Normal Canal, Hearing Grossly Normal, Normal TMs Nose: Normal Inspection, Normal Mucosa, No Blood Throat/Mouth: Normal Inspection, Normal Lips, Normal Teeth, Normal Gums, Normal Oropharynx, Normal Voice, No Airway Compromise Head: Atraumatic, Normocephalic Neck: Normal Inspection, Supple, Non-Tender, Full Range of Motion Respiratory/Chest: No Respiratory Distress, Lungs Clear, Normal Breath Sounds, No Accessory Muscle Use, Chest Non-Tender Cardiovascular: Normal Peripheral Pulses, Regular Rate, Rhythm, No Edema, No Gallop, No JVD, No Murmur, No Rub GI/Abdominal: Normal Bowel Sounds, Soft, Non-Tender, No Organomegaly, No Distention, No Abnormal Bruit, No Mass (Male) Exam: Deferred Rectal (Males) Exam: Deferred Back Exam: Normal Inspection, Full Range of Motion, NT Extremities: Other (decreased range of motion. On the medial distal stump there is a 1.3x3.1 #2 tunnels 1.4cm. On the medial there is a 0.4cmx1.2 #1. ) Neurological: Alert, Oriented, CN II-XII Intact, Normal Cognition, Normal Gait, Normal Reflexes, No Motor/Sensory Deficits Psychiatric: Normal Affect, Normal Mood Skin: Other (See under extremities) Lymphatic: No Adenopathy Course - Vital Signs Last Recorded V/S: Last Vital Signs Temp 98.3 F 12/04/19 12:22 Pulse 84 12/04/19 12:22 Resp 18 12/04/19 12:22 BP 143/57 H 12/04/19 12:22 Pulse Ox 100 12/04/19 12:22 - Orders/Labs/Meds Orders: Active Orders 24 hr Category Date Time Status CULTURE BLOOD [BC] Stat Lab 12/04/19 12:38 Received CULTURE WOUND [RM] Urgent Lab 12/04/19 12:30 Received Blood Culture x2 Reflex Set [OM.PC] Stat Oth 12/04/19 12:37 Ordered Labs: Laboratory Tests 12/04/19 12/04/19 12/04/19 Range/Units 12:38 12:38 12:38 WBC 5.0 (5.0-10.0) 10^3/uL RBC 4.28 L (4.6-6.2) 10^6/uL Hgb 12.8 L (14.0-18.0) g/dL Hct 38.3 L (40.0-54.0) % MCV 89.5 (80-100) fL MCH 29.9 (27.0-34.0) pg MCHC 33.4 (33.0-35.0) g/dL Plt Count 146 L (150-450) 10^3/uL Neut % (Auto) 65.1 (42.2-75.2) % Lymph % (Auto) 24.6 (20.5-50.1) % [place] % (Auto) 8.5 H (2-8) % Eos % (Auto) 1.6 (1.0-3.0) % Baso % (Auto) 0.2 (0.0-1.0) % Sodium 135 L (136-145) mmol/L Potassium 4.7 (3.5-5.1) mmol/L Chloride 102 (98-107) mmol/L Carbon Dioxide 22 (21-32) mmol/L Anion Gap 15.7 H (7-13) mEq/L BUN 26 H (7-18) mg/dL Creatinine 1.10 (0.70-1.30) mg/dL Est Cr Clr Drug Dosing 70.55 mL/min Estimated GFR (MDRD) > 60 BUN/Creatinine Ratio 23.6 (No establ ref range) Glucose 149 H (74-99) mg/dL Lactic Acid 1.5 (0.4-2.0) mmol/L Calcium 8.7 (8.5-10.1) mg/dL Total Bilirubin 0.6 (0.2-1.0) mg/dL AST 15 (15-37) U/L ALT 23 (16-63) U/L Alkaline Phosphatase 95 (46-116) U/L Total Protein 7.1 (6.4-8.2) g/dL Albumin 3.2 L (3.4-5.0) g/dL Globulin 3.9 Albumin/Globulin Ratio 0.82 Meds: Medications Discontinued Medications Generic Name Dose Route Start Last Admin Trade Name Freq PRN Reason Stop Dose Admin Silver Sulfadiazine 2 gm 12/04/19 13:20 12/04/19 13:28 Silvadene 1% Cream 50 Gm TOP 12/04/19 13:21 2 gm ONETIME ONE Administration - Re-Assessments/Exams Free Text/Narrative Re-Assessment/Exam: 12/04/19 14:19 Referral faxed to [facility]. Patient has an appointment to see Ortho on December 08 for follow up . [facility] has been set up to come out and see him. States he has been doing his own dressing changes. Departure - Departure Time of Disposition: 13:46 Disposition: Home, Self-Care 01 Condition: Good Clinical Impression: Wound dehiscence, AKA stump complication - Discharge Information *PRESCRIPTION DRUG MONITORING PROGRAM REVIEWED*: No *COPY OF PRESCRIPTION DRUG MONITORING REPORT IN PATIENT FARHANA: No Instructions: Wound Dehiscence, [id number] Forms: ED Department Discharge Additional Instructions: Follow dressing change instructions Follow up with your Ortho appointment next week 12/08 Wound Clinic should call you next week to make an appointment Return to ER if any worsening of problems Sepsis Event Note - Focused Exam Vital Signs: Vital Signs Temp Pulse Resp BP Pulse Ox 12/04/19 12:22 98.3 F 84 18 143/57 H 100 Date Exam was Performed: 12/04/19 Time Exam was Performed: 14:19 - My Orders Last 24 Hours: My Active Orders 12/04/19 12:30 CULTURE WOUND [RM] Urgent 12/04/19 12:37 Blood Culture x2 Reflex Set [OM.PC] Stat 12/04/19 12:38 CULTURE BLOOD [BC] Stat - Assessment/Plan Last 24 Hours: My Active Orders 12/04/19 12:30 CULTURE WOUND [RM] Urgent 12/04/19 12:37 Blood Culture x2 Reflex Set [OM.PC] Stat 12/04/19 12:38 CULTURE BLOOD [BC] Stat I have read and agree with the documentation that has been completed regarding this visit. By signing this record, I attest that the documentation was completed in my physical presence and is an accurate record of the encounter.
== END 2019-12-04 13:56 | disposition home or self-care (01) ==
LOC: DL.ED 12:19
DX: T87.81 Dehiscence of amputation stump (principal); E11.9 Type 2 diabetes mellitus without complications; M17.0 Bilateral primary osteoarthritis of knee; E66.9 Obesity, unspecified; Z79.82 Long term (current) use of aspirin; Z79.4 Long term (current) use of insulin; Z79.899 Other long term (current) drug therapy; Z68.33 Body mass index [BMI] 33.0-33.9, adult
CPT/HCPCS: 36415; 80053; 83605; 85025; 87040; 87070; 87077; 87186; 99283; A9270

== ENCOUNTER 2021-03-30 14:29 | Emergency (ER) | payer MEDICARE, MEDICAID ==
--- NOTE | 2021-03-30 14:30 | CT ---
PROCEDURE INFORMATION: Exam: CT Head Without Contrast Exam date and time: 03/30/2021 2:18 PM Age: 71 years old Clinical indication: Other: Weakness, ? CVA; Additional info: Possible CVA TECHNIQUE: Imaging protocol: Computed tomography of the head without contrast. Radiation optimization: All CT scans at this facility use at least one of these dose optimization techniques: automated exposure control; mA and/or kV adjustment per patient size (includes targeted exams where dose is matched to clinical indication); or iterative reconstruction. Other technique: STROKE PROTOCOL was implemented. COMPARISON: No relevant prior studies available. FINDINGS: Brain: Cerebral and cerebellar volume loss. No hemorrhage. Bilateral mild periventricular hypodensities consistent with chronic ischemic change. No mass effect. No midline shift. No cerebral edema. No intra-axial or extra-axial fluid collections. Basal cisterns are preserved. Cerebral ventricles: No ventriculomegaly. Paranasal sinuses: Visualized sinuses are unremarkable. No fluid levels. Mastoid air cells: Visualized mastoid air cells are well aerated. Bones/joints: Unremarkable. No acute fracture. Soft tissues: Unremarkable. IMPRESSION: Age-related atrophy and chronic white matter ischemic changes, with no evidence of an acute intracranial abnormality. If there is strong clinical concern for acute intracranial abnormality, then an MRI examination of the brain should be considered for further evaluation. However, if there are no deficits on neurological exam, then follow-up imaging could be considered on a nonemergent outpatient basis as clinically warranted. ASSESSMENT: ASPECTS [place] Stroke Program Early CT Score) is 10.
--- NOTE | 2021-03-30 14:33 | EDM.PDOC ---
"<Carlos Manuel Huerta M - Last Filed: 03/30/21 14:53> ED HPI GENERAL MEDICAL PROBLEM - General Stated Complaint: BY AMBULANCE Time Seen by Provider: 03/30/21 14:28 - Related Data Allergies Allergy/AdvReac Type Severity Reaction Status Date / Time No Known Allergies Allergy Verified 03/30/21 14:35 Home Meds: Home Meds Acetaminophen [Pain Relief] 650 mg PO Q4HR PRN 01/12/15 [History] Aspirin [Halfprin] 81 mg PO DAILY 04/24/15 [History] Insulin Detemir [Levemir] 35 units INJECT BID 05/11/15 [History] metFORMIN HCl [Metformin HCl] 1,000 mg PO BID 09/25/19 [History] Course - Radiology Interpretation Free Text/Narrative:: [facility] Final Radiology Report Call: [phone] assistance Online chat: [email or web address] Name: MIRANDA QUIROGA Age: 71Years M Date: 03/30/2021 SSN: -- : [id number] Study: CT HEAD WO CONT Requesting Physician: Carlos Manuel Huerta Images: [phone] Addl Studies: Provided Clinical History: possible CVA Contrast: Without Contrast Medium: Contrast Amount: Contrast Method: Page 1 of 2 PROCEDURE INFORMATION: Exam: CT Head Without Contrast Exam date and time: 03/30/2021 2:18 PM Age: 71 years old Clinical indication: Other: Weakness, ? CVA; Additional info: Possible CVA TECHNIQUE: Imaging protocol: Computed tomography of the head without contrast. Radiation optimization: All CT scans at this facility use at least one of these dose optimization techniques: automated exposure control; mA and/or kV adjustment per patient size (includes targeted exams where dose is matched to clinical indication); or iterative reconstruction. Other technique: STROKE PROTOCOL was implemented. COMPARISON: No relevant prior studies available. FINDINGS: Brain: Cerebral and cerebellar volume loss. No hemorrhage. Bilateral mild periventricular hypodensities consistent with chronic ischemic change. No mass effect. No midline shift. No cerebral edema. No intra-axial or extra-axial fluid collections. Basal cisterns are preserved. Cerebral ventricles: No ventriculomegaly. Paranasal sinuses: Visualized sinuses are unremarkable. No fluid levels. Mastoid air cells: Visualized mastoid air cells are well aerated. Bones/joints: Unremarkable. No acute fracture. Soft tissues: Unremarkable. IMPRESSION: Age-related atrophy and chronic white matter ischemic changes, with no evidence of an acute intracranial abnormality. If there is strong clinical concern for acute intracranial abnormality, then an MRI examination of the brain should be considered for further evaluation. However, if there are no ROSS MIRANDA | Final Radiology Report CONFIDENTIALITY STATEMENT This report is intended only for use by the referring physician, and only in accordance with law. If you received this in error, call [phone]. Page 2 of 2 deficits on neurological exam, then follow-up imaging could be considered on a nonemergent outpatient basis as clinically warranted. ASSESSMENT: ASPECTS [facility] Stroke Program Early CT Score) is 10. Thank you for allowing us to participate in the care of your patient. Dictated and Authenticated by: Jacklyn Roy, Departure - Departure Disposition: Home, Self-Care 01 Clinical Impression: New onset a-fib, TIA (transient ischemic attack) - Discharge Information Instructions: Atrial Fibrillation, [id number] Additional Instructions: RX: Eliquis Follow up with your primary care facility immediately. You also need to establish care with a outpatient psychiatrist which your primary care facility can help your with. If any new symptoms or concerns develop contact your primary care facility or return to the ER. <Otoniel Barker - Last Filed: 03/30/21 15:49> ED HPI GENERAL MEDICAL PROBLEM - General Source of Information: Reports: Patient History Limitations: Reports: No Limitations - History of Present Illness INITIAL COMMENTS - FREE TEXT/NARRATIVE: 71 y/o M c/o R arm weakness and slurred speech that started at 6 am this morning and lasted until 11 am. The symptoms resolved on their own without intervention. He reports a similar episode yesterday at 4 am that lasted 5 hours and another episode last week that lasted about the same amount of time. 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 No recent trauma or changes to medical conditions. Denies fitzgerald, vision prob, cp , db, abd pn, diff voiding, fever, cough, chills, drugs, etoh. Onset: Today Past Medical History HEENT History: Reports: Impaired Vision Other HEENT History: wear glasses Cardiovascular History: Reports: None Respiratory History: Reports: Pneumothorax, Other (See Below) Other Respiratory History: HX OF RIGHT PNEUMOTHORAX Gastrointestinal History: Reports: Helicobacter Pylori, Other (See Below) Other Gastrointestinal History: ventral hernia, colon cancer 2012; HYPYLORI POSITIVE Genitourinary History: Reports: None Musculoskeletal History: Reports: Arthritis, Fracture, Other (See Below) Other Musculoskeletal History: osteoarthritis in knees, neck fracture; HUMERAL DISTAL FRACTURE WITH INTRACATICULAR EXTENSION; CLOSED DISPLACED SUPRACONDYLAR FRACTURE WITH INTRACONDYLAR EXTENSION OF LOWER END OF LEFT FEMUR; SEPTIC ARTHRITIS OF KNEE Other Neuro History: broken neck plate placed with some numbness from neck toes Psychiatric History: Reports: None Endocrine/Metabolic History: Reports: Diabetes, Type II, Obesity/BMI 30+ Hematologic History: Reports: Anemia, Blood Transfusion(s) Other Hematologic History: NEUTROPENIA CHEMOTHERAPY INDUCED; ACUTE BLOOD LOSS FROM LONG BONE FRACTURE REQUIRING TRANSFUSION 2014 Immunologic History: Reports: None Oncologic (Cancer) History: Reports: Colon Dermatologic History: Reports: Other (See Below) - Infectious Disease History Infectious Disease History: Reports: Chicken Pox - Past Surgical History GI Surgical History: Reports: Colon, Colonoscopy, Polypectomy Other GI Surgeries/Procedures: BOWEL RESECTION Other Neurological Surgeries/Procedures: plate placed Musculoskeletal Surgical History: Reports: ORIF, Other (See Below) Other Musculoskeletal Surgeries/Procedures:: marissa and pins placed in left knee December 2013, neck surgery-plate placed in early ; I & D OF LEFT KNEE, HARDWARE REMOVAL, INSERTION OF AB CEMENT (IM MARISSA) FOR STREP PYOGENES; CERVICAL INFUSION Other Oncologic Surgeries/Procedures: colon resection Social & Family History - Family History Family Medical History: No Pertinent Family History - Caffeine Use Caffeine Use: Reports: Coffee ED ROS GENERAL - Review of Systems Review Of Systems: Comprehensive ROS is negative, except as noted in HPI. ED EXAM, NEURO - Physical Exam Exam: See Below General Appearance: Alert, No Apparent Distress Eye Exam: Bilateral Eye: PERRL (with conjugate gaze) Ears: Normal External Exam, Normal Canal, Hearing Grossly Normal, Normal TMs Nose: Normal Inspection, Normal Mucosa, No Blood Throat/Mouth: Normal Inspection, Normal Lips, Normal Teeth, Normal Gums, Normal Oropharynx, Normal Voice, No Airway Compromise Head Exam: Atraumatic, Normocephalic Neck: Normal Inspection, Supple, Non-Tender, Full Range of Motion Respiratory/Chest: No Respiratory Distress, Lungs Clear, Normal Breath Sounds Cardiovascular: Irregularly Irregular GI/Abdominal: Soft, Non-Tender (Male) Exam: Deferred Neurological: Alert, Normal Mood/Affect Back Exam: Normal Inspection, Full Range of Motion Extremities: Other (L leg amputation) Skin Exam: Warm, Intact #1 Interpretation EKG Date: 03/30/21 Time: 14:37 Rhythm: A-Fib Buena: LAD-Left Buena Deviation P-Wave: Absent QRS: LBBB ST-T: Normal QT: Prolonged Course - Vital Signs Last Recorded V/S: Last Vital Signs Temp 97.0 F 03/30/21 14:36 Pulse 94 03/30/21 14:36 Resp 18 03/30/21 14:36 BP 124/91 H 03/30/21 14:36 Pulse Ox 97 03/30/21 14:36 - Orders/Labs/Meds Orders: Active Orders 24 hr Category Date Time Status Blood Glucose Check, Bedside [RC] ONETIME Care 03/30/21 14:52 Active CULTURE BLOOD [BC] Stat Lab 03/30/21 14:37 Received DRUG SCREEN URINE BIORAD [URCHEM] Stat Lab 03/30/21 14:13 Ordered UA RFX ARACELI AND CULT IF INDIC [URIN] Urgent Lab 03/30/21 14:13 Ordered Labs: Laboratory Tests 03/30/21 03/30/21 03/30/21 Range/Units 14:16 14:37 14:37 WBC 4.6 L (5.0-10.0) 10^3/uL RBC 5.25 (4.6-6.2) 10^6/uL Hgb 16.1 D (14.0-18.0) g/dL Hct 47.7 (40.0-54.0) % MCV 90.9 (80-100) fL MCH 30.7 (27.0-34.0) pg MCHC 33.8 (33.0-35.0) g/dL Plt Count 136 L (150-450) 10^3/uL Neut % (Auto) 80.8 H (42.2-75.2) % Lymph % (Auto) 8.7 L (20.5-50.1) % Sevier % (Auto) 9.2 H (2-8) % Eos % (Auto) 1.1 (1.0-3.0) % Baso % (Auto) 0.2 (0.0-1.0) % PT 10.3 (9.0-12.0) SEC INR 1.0 (0.9-1.2) Sodium (136-145) mmol/L Potassium (3.5-5.1) mmol/L Chloride (98-107) mmol/L Carbon Dioxide (21-32) mmol/L Anion Gap (7-13) mEq/L BUN (7-18) mg/dL Creatinine (0.70-1.30) mg/dL Est Cr Clr Drug Dosing mL/min Estimated GFR (MDRD) BUN/Creatinine Ratio (No establ ref range) Glucose (70-99) mg/dL POC Glucose 67 L (70-99) mg/dL Lactic Acid (0.4-2.0) mmol/L Calcium (8.5-10.1) mg/dL Magnesium (1.8-2.4) mg/dL Total Bilirubin (0.2-1.0) mg/dL AST (15-37) U/L ALT (16-63) U/L Alkaline Phosphatase (46-116) U/L Total Protein (6.4-8.2) g/dL Albumin (3.4-5.0) g/dL Globulin Albumin/Globulin Ratio Ethyl Alcohol (0) mg/dL 03/30/21 03/30/21 Range/Units 14:37 14:37 WBC (5.0-10.0) 10^3/uL RBC (4.6-6.2) 10^6/uL Hgb (14.0-18.0) g/dL Hct (40.0-54.0) % MCV (80-100) fL MCH (27.0-34.0) pg MCHC (33.0-35.0) g/dL Plt Count (150-450) 10^3/uL Neut % (Auto) (42.2-75.2) % Lymph % (Auto) (20.5-50.1) % Sevier % (Auto) (2-8) % Eos % (Auto) (1.0-3.0) % Baso % (Auto) (0.0-1.0) % PT (9.0-12.0) SEC INR (0.9-1.2) Sodium 137 (136-145) mmol/L Potassium 3.2 L D (3.5-5.1) mmol/L Chloride 100 (98-107) mmol/L Carbon Dioxide 30 (21-32) mmol/L Anion Gap 10.2 (7-13) mEq/L BUN 21 H (7-18) mg/dL Creatinine 1.07 (0.70-1.30) mg/dL Est Cr Clr Drug Dosing 70.51 mL/min Estimated GFR (MDRD) > 60 BUN/Creatinine Ratio 19.6 (No establ ref range) Glucose 89 (70-99) mg/dL POC Glucose (70-99) mg/dL Lactic Acid 1.6 (0.4-2.0) mmol/L Calcium 8.1 L (8.5-10.1) mg/dL Magnesium 1.8 (1.8-2.4) mg/dL Total Bilirubin 4.5 H (0.2-1.0) mg/dL AST 45 H (15-37) U/L ALT 63 (16-63) U/L Alkaline Phosphatase 297 H (46-116) U/L Total Protein 6.8 (6.4-8.2) g/dL Albumin 2.6 L (3.4-5.0) g/dL Globulin 4.2 Albumin/Globulin Ratio 0.62 Ethyl Alcohol < 3 (0) mg/dL - Re-Assessments/Exams Free Text/Narrative Re-Assessment/Exam: 03/30/21 15:38 The patient reports no hx of afib and denies anticoagulants. Discussed labs, exam, ekg and radiological finding with pt. I explained to the patient that he likely has new onset afib and that this process could be showering small clots into his brain which may explain his intermittent symptoms. I will have pt follow up with his PCP to get a refferal for cardiology and possibly neurology. Departure - Departure Time of Disposition: 15:41 Condition: Fair - Discharge Information *PRESCRIPTION DRUG MONITORING PROGRAM REVIEWED*: Not Applicable *COPY OF PRESCRIPTION DRUG MONITORING REPORT IN PATIENT FARHANA: Not Applicable Sepsis Event Note (ED) - Focused Exam Vital Signs: Vital Signs Temp Pulse Resp BP Pulse Ox 03/30/21 14:36 97.0 F 94 18 124/91 H 97"
[2021-03-30 14:39] VITALS: BP 124/91; PULSE 94
[2021-03-30 15:04] LABS: ANION GAP 10.2 mEq/L (7-13); CHLORIDE,CL 100 mmol/L (98-107); SODIUM,NA 137 mmol/L (136-145)
== END 2021-03-30 17:03 | disposition home or self-care (01) ==
LOC: DL.ED 14:29
DX: G45.9 Transient cerebral ischemic attack, unspecified (principal); I48.91 Unspecified atrial fibrillation
CPT/HCPCS: 36415; 70450; 80053; 80307; 82947; 83605; 83735; 85025; 85610; 87040; 93005; 99285-25

== ENCOUNTER 2021-11-13 17:26 | Emergency (ER) | payer MEDICARE, MEDICAID ==
[2021-11-13] MEDS ORDERED: Sodium Chloride 0.9% 10 ML Syringe FLUSH PRN (17:28)
[2021-11-13 17:59] VITALS: BP 127/84; PULSE 79
[2021-11-13 18:21] LABS: ANION GAP 13.8 mEq/L (7-13); CHLORIDE,CL 100 mmol/L (98-107); SODIUM,NA 135 mmol/L (136-145)
== END 2021-11-13 20:05 ==
LOC: DL.ED 17:26
DX: I63.9 Cerebral infarction, unspecified (principal); I48.91 Unspecified atrial fibrillation; E11.40 Type 2 diabetes mellitus with diabetic neuropathy, unspecified; M19.90 Unspecified osteoarthritis, unspecified site; E66.9 Obesity, unspecified; Z20.822 Contact with and (suspected) exposure to COVID-19; Z79.82 Long term (current) use of aspirin; Z79.899 Other long term (current) drug therapy
CPT/HCPCS: 36415; 70450; 80053; 80307; 82947; 83605; 83735; 84484; 85025; 85610; 85730; 86140; 93005; 99285-25; U0002